=== PATIENT | male | born 1960 | race African-American/Black ===

== ENCOUNTER 2017-11-22 10:21 | Emergency (ER) | payer MEDICARE, OTHER ==
[~2017-11-22] VITALS: Ht 188 cm; Wt 95.3 kg
[~2017-11-22 10:21] MED LIST: CATAPRES0.3 MG ORAL; HYDROCODON-ACE1 EA16 ORAL
[2017-11-22] MEDS ORDERED: MINOXIDIL10 MG PO (10:28)
[2017-11-22] MEDS ORDERED: RENA-VITE TABL0.8 M1 PO (10:28)
[2017-11-22] MEDS ORDERED: ACETAMINOPHEN-1 EAC1 ORAL (10:28)
[2017-11-22] MEDS ORDERED: ZOLPIDEM TARTRA10 MG ORAL (10:28)
[2017-11-22] MEDS ORDERED: FOSRENOL1000 MG PO (10:28)
[2017-11-22] MEDS ORDERED: HYDRALAZINE HCL50 MG ORAL (10:28)
[2017-11-22] MEDS ORDERED: NEPHROVITE1 TAB ORAL (10:28)
[2017-11-22] MEDS ORDERED: DIOVAN320 MG ORAL (10:28)
[2017-11-22] MEDS ORDERED: LABETALOL HCL300 MG ORAL (10:28)
[2017-11-22] MEDS ORDERED: PANTOPRAZOLE SO40 MG ORAL (10:28)
[2017-11-22] MEDS ORDERED: TUMS200 M1 PO (10:28)
[2017-11-22] MEDS ORDERED: LORazepam Inj 2mg/ml 1ml IV ONE (10:30)
--- NOTE | 2017-11-22 10:39 | Emergency Room Report ---
History of Present Illness General Chief Complaint: Hypertension Source: Patient Present Illness HPI 57-year-old male, history of hypertension, end-stage renal disease, on dialysis Monday, last dialysis is Monday, brought by EMS for tremors, hypotension, headache. Patient states that he has a headache for 4 days. throbbing. Intermittent No nausea vomiting or blurry vision. States that he was seen in the ER at [facility] yesterday, he performed a CAT scan which was reportedly negative and also given [place] and that discharged him. Patient states that he still feels like he still has a headache although it is less today. Also states that he has had tremors since 2014. Was a chronic alcoholic, but states that his last was 2014. States that he normally gets tremors, that comes and goes. Has not seen a doctor for this before. Denying any chest pain shortness of breath abdominal pain nausea or vomiting Allergies: Coded Allergies: YANI INHIBITORS (Verified Allergy, Severe, 12/20/15) BENAZEPRIL (Unverified Allergy, Unknown, 11/22/17) Patient History Past Medical History: see triage record Past Surgical History: none Pertinent Family History: none Reviewed Nursing Documentation: PMH: Agreed, PSxH: Agreed Nursing Documentation-PMH Hx Cardiac Problems: Yes - CHF Hx Hypertension: Yes Hx Gastrointestinal Problems: Yes - gout Hx Dialysis: Yes - MWF Review of Systems All Other Systems: negative except mentioned in HPI Physical Exam Vital Signs Date Time Temp Pulse Resp B/P (MAP) Pulse Ox O2 Delivery O2 Flow Rate FiO2 11/22/17 10:13 97.7 73 18 236/102 98 Room Air 97.7 Sp02 EP Interpretation: reviewed, normal General Appearance: alert, GCS 15, non-toxic, mild distress Head: normocephalic, atraumatic Eyes: bilateral eye normal inspection, bilateral eye PERRL, bilateral eye EOMI ENT: normal ENT inspection, normal pharynx, normal voice, moist mucus membranes Neck: normal inspection, full range of motion, supple Respiratory: normal inspection, lungs clear, normal breath sounds, no respiratory distress, no retraction, no wheezing, speaking full sentences, chest symmetrical Cardiovascular #1: normal inspection, regular rate, rhythm, normal capillary refill Cardiovascular #2: 2+ radial (R), 2+ radial (L) Gastrointestinal: normal inspection, non tender, soft, non-distended, no guarding Musculoskeletal: normal inspection, back normal, normal range of motion, non- tender, other - LUE av fistula Neurologic: normal inspection, alert, oriented x3, responsive, parking enforcement manager III-XII nml as tested, motor strength/tone normal, sensory intact, normal gait, speech normal Psychiatric: normal inspection, judgement/insight normal, memory normal Skin: normal inspection, normal color, no rash, warm/dry, well hydrated, normal turgor Medical Decision Making Diagnostic Impression: Primary Impression: Headache Additional Impressions: Tremor Hypertension ER Course 57-year-old male with headache for 4 days DDX: BENTLEY due to hypertensive emergency Primary BENTLEY such as migraine, tension BENTLEY, cluster. vs. dehydration Other serious diagnoses on differential such as intracranial bleed/sah, meningitis/encephalitis, tumor, however patients H&P is more consistent with benign etiology at this time. There are no neurological signs/symptoms/findings on physical exam and patient appears nontoxic. Patient also had a negative CAT scan 4 days ago tremors: Unlikely to be alcohol withdrawal as patient is stating that his last drink was several years ago, possibly primary tremors, and states that he has had tremors intermittently for years Plan: Labs, Ativan, pain control ER course: Patient continues to appear nontoxic, aox3, no neurologic symptoms. CT head results are obtained from [facility] that was 11/21/2017. Impression no acute findings are seen. Patient has been awake alert, states that his headache is gone, not tremulous anymore. He was treated for his hypertension, however patient is asymptomatic no chest pain no shortness of breath. Headache is improved. Patient is ambulatory feels much better. Patient is instructed to followup with his primary care doctor for adjustment of his high blood pressure medication Disposition: Patient will be discharged to home. Patient instructed to follow up with primary care doctor within 5 days. Patient also instructed to follow up with a neurologist within 1 week. Strict return precautions discussed with patient such as severe/worsening headache, nausea, vomiting, fever chills, neck pain. Patient verbalized understanding. Please note that this Emergency Department Report was dictated using myAchytransmitter engineer technology software, occasionally this can lead to erroneous entry secondary to interpretation by the dictation equipment. EKG Diagnostic Results EP Interpretation: Yes Rate: normal Rhythm: NSR ST Segments: T wave inversion aVL ASA given to patient: No Rhythm Strip EP Interpretation: Yes Rate: 70 Rhythm: NSR, no PVCs, no ectopy Last Vital Signs Date Time Temp Pulse Resp B/P (MAP) Pulse Ox O2 Delivery O2 Flow Rate FiO2 11/22/17 10:33 80 20 Room Air 11/22/17 10:13 97.7 236/102 98 97.7 Disposition: HOME, SELF-CARE Condition: Improved Je Zarate M.D. Nov 22, 2017 10:39
[2017-11-22 11:10] LABS: BASOPHILS % (AUTO) 1.5 % (0.0-2.0); EOSINOPHILS % (AUTO) 1.5 % (0.0-3.0); HEMATOCRIT 36.4 % (42.0-52.0); HEMOGLOBIN 11.8 G/DL (14.2-18.0); LYMPHOCYTES % (AUTO) 16.1 % (20.0-45.0); MEAN CORPUSCULAR VOLUME 93 FL (80-99); MONOCYTES % (AUTO) 8.5 % (1.0-10.0); NEUTROPHILS % (AUTO) 72.4 % (45.0-75.0); PLATELET COUNT 145 K/UL (150-450); RED BLOOD COUNT 3.94 M/UL (4.70-6.10); RED CELL DISTRIBUTION WIDTH 14.7 % (11.6-14.8); WHITE BLOOD COUNT 3.7 K/UL (4.8-10.8)
[2017-11-22 11:16] LABS: ANION GAP 14 mmol/L (5-15); BLOOD UREA NITROGEN 56 mg/dL (7-18); CALCIUM 9.4 MG/DL (8.5-10.1); CARBON DIOXIDE 26 MMOL/L (21-32); CHLORIDE 97 MMOL/L (98-107); CREATININE 10.3 MG/DL (0.55-1.30); POTASSIUM 4.7 MMOL/L (3.5-5.1); SODIUM 137 MMOL/L (136-145)
[2017-11-22 11:24] LABS: ALANINE AMINOTRANSFERASE 21 U/L (12-78); ALBUMIN/GLOBULIN RATIO 0.8 (1.0-2.7); ALKALINE PHOSPHATASE 66 U/L (46-116); ASPARTATE AMINO TRANSFERASE 26 U/L (15-37); BILIRUBIN,TOTAL 0.7 MG/DL (0.2-1.0)
--- NOTE | 2017-11-22 11:38 | Diagnostic Imaging Report ---
Indication: Pain Technique: One view of the chest Comparison: none Findings: The heart is enlarged. The left medial hemidiaphragm is obscured and there is retrocardiac opacity. There may be a retrocardiac hiatal hernia as well, as there is an ill-defined lucency present. The right lung and pleural space are clear. Impression: Cardiomegaly Suspect retrocardiac infiltrate Possible retrocardiac hiatal hernia
[2017-11-22 12:14] VITALS: BP 223/97
[2017-11-22 13:09] VITALS: BP 223/97
--- NOTE | 2017-11-24 11:39 | Cardiology Report ---
APPROVED REPORT EKG Measurement Heart [id number] ID [id number] Normal sinus rhythm Voltage criteria for left ventricular hypertrophy Nonspecific ST and T wave abnormality Prolonged QT Abnormal ECG
== END 2017-11-22 13:11 | disposition home or self-care (01) ==
LOC: EDBD 10:21 → EMR 10:37
DX: R51 Headache (principal); R25.1 Tremor, unspecified; I13.2 Hypertensive heart and chronic kidney disease with heart failure and with stage 5 chronic kidney disease, or end stage renal disease; I50.9 Heart failure, unspecified; N18.6 End stage renal disease; Z99.2 Dependence on renal dialysis; M10.9 Gout, unspecified; Z88.8 Allergy status to other drugs, medicaments and biological substances
CPT/HCPCS: 36415; 71045; 80053; 83880; 85025; 93005; 96374; 96376; 99284; J0360